=== PATIENT | female | born 1985 | race Hispanic/Latino ===

== ENCOUNTER 2017-03-28 07:36 | Day surgery (SDC) | payer MEDICAID ==
[2017-03-28] MEDS ORDERED: NITROSTAT SL ONE ×2 (08:30→13:07)
[2017-03-28 08:38] LABS: Anion Gap 16 mmol/L; BUN/Creatinine Ratio 27; Blood Urea Nitrogen 19 mg/dL (7-17); Calcium 8.6 mg/dL (8.4-10.2); Carbon Dioxide 26 mmol/L (22-30); Chloride 103.7 mmol/L (98-107); Glucose 111 mg/dL (65-100); Potassium 4.5 mmol/L (3.6-5.0); Sodium 141 mmol/L (137-145)
[2017-03-28] MEDS ORDERED: LOPRESSOR ONE (08:42)
[2017-03-28] MEDS ORDERED: NACL ONE (08:45)
[2017-03-28] MEDS ORDERED: LOPRESSOR PO ONE (09:00)
[2017-03-28] MEDS ORDERED: LOPRESSOR IV ONE ×3 (11:30→14:01)
[2017-03-28 13:36] VITALS: BP 123/66
--- NOTE | 2017-03-28 15:08 | Cat Scan Report ---
CT ANGIO HEART STRUCTURE/MORPHOLOGY/FUNCTION: INDICATION: Abnormal cardio function test. COMPARISON: None similar at this institution. FINDINGS: A limited chest CT scan was carried out for evaluation of heart structure, morphology and function. This dictation is for the non-cardiac portion of the chest which was included. No definite hilar or mediastinal mass. Top normal heart size. Tiny, benign, likely postinflammatory fissural densities on the right, axial series 154, images 12 and 15. Visualized lungs otherwise well-expanded and clear. Nonspecific distal esophageal wall prominence/thickening, not excluded for gastroesophageal reflux and/or hiatal hernia, amongst others. IMPRESSION: No significant extracardiac CT abnormalities, as described. Thank you for the opportunity to participate in this patient's care.
[2017-03-29] MEDS ORDERED: LOPRESSOR PO ONE (10:00)
== END 2017-03-28 13:45 | disposition home or self-care (01) ==
LOC: CATHLABREC 07:36 → EDSTATUS 08:15 → CATHLABREC 13:45
PROVIDERS: ATTEND Internal Medicine Cardiovascular Disease
DX: R94.39 Abnormal result of other cardiovascular function study (principal)
CPT/HCPCS: 36415; 75574; 80048; Q9967